=== PATIENT | female | born 1985 | race Caucasian/White ===

== ENCOUNTER 2019-10-16 16:02 | Emergency (ER) | payer OTHER ==
[~2019-10-16] VITALS: Ht 162.6 cm; Wt 113.4 kg
[~2019-10-16 16:02] MED LIST: AMOXICILLIN875 MG PO; AZITHROMYCIN 2250 MG PO; FLONASE NS; HYDROCODONE-AP1 EAC6 PO; LEXAPRO20 MG PO; NAPROSYN500 MG PO; NOHOMEMEDICATIONS; NORCO 5-325 TA1 EACH PO; NUVARING VAGIN1 EACH; ROBAXIN 750 MG750 M1 PO; WELLBUTRIN 75 M75 M1; XANAX1 MG; ZOFRAN ODT4 MG PO; ZOLOFT25 MG
[2019-10-16] MEDS ORDERED: CYMBALTA60 MG PO (16:15)
[2019-10-16] MEDS ORDERED: WELLBUTRIN SR150 MG PO (16:15)
[2019-10-16 16:33] LABS: URINE BILIRUBIN NEGATIVE (Negative); URINE BLOOD NEGATIVE (Negative); URINE CLARITY SL CLOUDY; URINE COLOR ORANGE; URINE GLUCOSE-RANDOM NEGATIVE (Negative); URINE KETONES TRACE (Negative); URINE LEUKOCYTES-REFLEX TRACE (Negative); URINE NITRITE-REFLEX NEGATIVE (Negative); URINE PROTEIN 2+ (Negative); URINE SPECIFIC GRAVITY >= 1.030 (1.005-1.030); URINE UROBILINOGEN 0.2 E.U./dl (0.2-1.0)
[2019-10-16 16:40] LABS: ABSOLUTE BASOPHILS 0.1 thou/uL (0.0-0.2); ABSOLUTE EOSINOPHILS 0.1 thou/uL (0.0-0.7); ABSOLUTE LYMPHOCYTES 1.4 thou/uL (0.8-5.3); ABSOLUTE NEUTROPHILS 7.7 thou/uL (1.6-8.1); BASOPHILS 0.8 %; EOSINOPHILS 0.8 %; HEMATOCRIT 42.1 % (37.0-47.0); HEMOGLOBIN 14.7 gm/dL (12.0-15.0); LYMPHOCYTES 13.3 %; MCHC 34.8 g/dL (28.0-37.0); MCV 83.3 fL (80.0-100.0); MONOCYTES 10.1 %; MPV 7.1 fl. (7.2-11.1); NUCLEATED RBCS 0 /100WBC; PLATELET COUNT* 380 thou/uL (150-400); RBC 5.05 mil/uL (4.20-5.00); RDW-CV 13.2 % (10.5-14.5); WBC 10.2 thou/uL (4.0-11.0)
[2019-10-16 16:43] LABS: BACTERIA-REFLEX >30 Many /HPF (None Seen); CASTS None Seen /LPF (None Seen); CRYSTALS None Seen /LPF (None Seen); MUCUS >6 Heavy strn/LPF (None Seen); SQUAMOUS >10 Many /LPF (0-3); URINE RBC 3-10 Few /HPF (0-2); URINE WBC-REFLEX >25 Many /HPF (0-5)
[2019-10-16 16:46] LABS: INFLUENZA A ANTIGEN Negative (Negative); INFLUENZA B ANTIGEN Negative (Negative)
[2019-10-16 16:50] LABS: CALCIUM 8.6 mg/dL (8.5-10.1); CREATININE 0.8 mg/dL (0.6-1.3); POTASSIUM 3.7 mmol/L (3.5-5.1)
[2019-10-16 16:55] LABS: ALBUMIN 3.8 g/dL (3.4-5.0); TOTAL BILIRUBIN 0.9 mg/dL (<0.1-1.0); TOTAL PROTEIN 8.1 g/dL (6.4-8.2)
[2019-10-16] MEDS ORDERED: ZOFRAN 4 MG ORAL4 MG PO (18:00)
[2019-10-16] MEDS ORDERED: NITROFURANTOIN100 MG PO (18:00)
[2019-10-16 18:24] VITALS: BP 118/71
--- NOTE | 2019-10-17 11:51 | EKG ---
[place] [address] ELECTROCARDIOGRAM REPORT Name: RAY SOOD Room: [facility] ([place], [place])#: [id number] Admission: 10/16/19 Attend Phys: Discharge: 10/16/19 Date of : 81 Date of Service: 10/16/19 1644 Report #: [id number] THIS REPORT FOR: //name// [facility] ED Test Date: 2019-10-16 Test Time: 16:44:39 Pat Name: RAY SOOD Department: Room: Gender: Research Technician: : 1985 Requested By: Yari Merritt Order Number: [id number] MD: Fred Meyers Measurements Intervals [place] Rate: 105 P: 27 IA: 122 QRS: -6 QRSD: 73 T: 20 QT: 336 QTc: 445 Interpretive Statements Sinus tachycardia Compared to ECG 10/11/2008 22:11:24 Sinus rhythm no longer present Electronically Signed On 10-17-2019 11:50:40 [employer] by Fred Meyers [email or web address] <ELECTRONICALLY SIGNED> By: Fred Meyers MD, [facility] 10/17/19 1150 1644 164 Fred Meyers MD, [facility] /EPI
== END 2019-10-16 18:25 | disposition home or self-care (01) ==
LOC: M.ERS 16:02
PROVIDERS: Nurse Practitioner Family
DX: N39.0 Urinary tract infection, site not specified (principal); R10.12 Left upper quadrant pain; R10.11 Right upper quadrant pain; R11.2 Nausea with vomiting, unspecified; Z90.49 Acquired absence of other specified parts of digestive tract; Z87.442 Personal history of urinary calculi